=== PATIENT | female | born 1970 | race African-American/Black ===

== ENCOUNTER → 2018-06-07 | Emergency (ER) | payer OTHER ==
[~2018-06-07] MED LIST: IBUPROFEN 400 MG TABLET (FP) PO ONE
[2018-06-07 18:13] VITALS: BP 147/89; PULSE 72; TEMP 98; BMI 39.6
--- NOTE | 2018-06-07 19:01 | PDOC ---
History of Present Illness - General Chief Complaint: Headache Stated Complaint: FALL INJURY Time Seen by Provider: 06/07/18 18:22 History Source: Patient Exam Limitations: Clinical Condition - History of Present Illness Initial Comments: 06/07/18 18:52 Patient with no significant past medical history presenting with complain of headache with mild swelling to right side of top of head after hitting the head on a cabinet at work 30 minutes ago. Denies dizziness, blurry vision, vision changes, N/V, LOC. Denies open wound or bruising to site. Denies any other symptoms Timing/Duration: 1/2 hour Severity: mild Past History - Past Medical History Allergies/Adverse Reactions: Allergies Allergy/AdvReac Type Severity Reaction Status Date / Time No Known Allergies Allergy Verified 06/07/18 18:13 Home Medications: Ambulatory Orders Ibuprofen 800 mg PO TID PRN #20 tablet 06/07/18 - Suicide/Smoking/Psychosocial Hx Smoking History: Never smoked Have you smoked in the past 12 months: No Information on smoking cessation initiated: No Hx Alcohol Use: No Drug/Substance Use Hx: No Review of Systems - Review of Systems Able to Perform ROS?: Yes Is the patient limited Mongolian proficient: No Constitutional: No: Chills, Diaphoresis, Fever, Loss of Appetite, Malaise, Night Sweats, Weakness, Weight Stable, Unintentional Wgt. Loss, Unexplained wgt Loss, Other HEENTM: Yes: See HPI. No: Eye Pain, Blurred Vision, Tearing, Recent change in vision, Double Vision, Cataracts, Ear Pain, Ocular Prothesis, Ear Discharge, Nose Pain, Nose Congestion, Tinnitus, Nose Bleeding, Hearing Loss, Throat Pain, Throat Swelling, Mouth Pain, Dental Problems, Difficulty Swallowing, Mouth Swelling, Other Respiratory: No: Cough, Orthopnea, Shortness of Breath, SOB with Exertion, SOB at Rest, Stridor, Wheezing, Productive cough, Hemoptysis, Other Cardiac (ROS): No: Chest Pain, Edema, Irregular Heart Rate, Lightheadedness, Palpitations, Syncope, Chest Tightness, Other ABD/GI: No: Abdominal Distended, Abd. Pain w/ defecation, Blood Streaked Bowels , Constipated, Diarrhea, Difficulty Swallowing, Nausea, Poor Appetite, Poor Fluid Intake, Rectal Bleeding, Vomiting, Indigestion, Abdominal cramping, Tarry Stools, Other *Physical Exam - Vital Signs Last Vital Signs Temp Pulse Resp BP Pulse Ox 98.0 F 72 16 147/89 100 06/07/18 18:11 06/07/18 18:11 06/07/18 18:11 06/07/18 18:11 06/07/18 18:11 - Physical Exam Comments: 06/07/18 19:18 GENERAL: Well developed, well nourished. Awake and alert. No acute distress. HEENT: Normocephalic, atraumatic. PERRLA, EOMI. No conjunctival pallor. Sclera are non- icteric. Moist mucous membranes. Oropharynx is clear. NECK: Supple. Full ROM. No JVD. Carotid pulses 2+ and symmetric, without bruits. No thyromegaly. No lymphadenopathy. CARDIOVASCULAR: Regular rate and rhythm. No murmurs, rubs, or gallops. Distal pulses are 2+ and symmetric. PULMONARY: No evidence of respiratory distress. Lungs clear to auscultation bilaterally. No wheezing, rales or rhonchi. ABDOMINAL: Soft. Non-tender. Non-distended. No rebound or guarding. No organomegaly. Normoactive bowel sounds. MUSCULOSKELETAL : mild tenderness over area of contusion. EXTREMITIES: No cyanosis. No clubbing. No edema. No calf tenderness. SKIN: mild swelling to right scalp of top of head. no bruising to area. no evidence of bleeding on exam. NEUROLOGICAL: Alert, awake, appropriate. Cranial nerves 2-12 intact. No deficits to light touch and temperature in face, upper extremities and lower extremities. No motor deficits in the in face, upper extremities and lower extremities. Normoreflexic in the upper and lower extremities. Normal speech. Toes are down- going bilaterally. Gait is normal without ataxia. PSYCHIATRIC: Cooperative. Good eye contact. Appropriate mood and affect. General Appearance: Yes: Nourished, Appropriately Dressed. No: Apparent Distress Medical Decision Making - Medical Decision Making 06/07/18 19:20 Patient presented with complain of headache due to head contusion from a cabinet. Normal neuro exam on clinical exam. No evidence of intracranial bleeding or bruising to the area. Mild swelling to area of contusion. Symptoms likely due to contusion. No other symptoms on clinical exam. Normal tandem walking. Normal nose to hand movement. Patient is stable for home discharge with ED precautions for new development of nausea or vomiting, worsening headache or change in vision *DC/Admit/Observation/Transfer Diagnosis at time of Disposition: Head contusion Qualifiers: Encounter type: initial encounter Contusion of head detail: scalp Qualified Code(s): S00.03XA - Contusion of scalp, initial encounter - Discharge Dispostion Disposition: HOME Decision to Admit order: No - Prescriptions Prescriptions: Ibuprofen 800 mg PO TID PRN #20 tablet PRN Reason: headache - Referrals - Patient Instructions Printed Discharge Instructions: DI for Contusion - Post Discharge Activity
== END | disposition home or self-care (01) ==
LOC: JERFT 17:51
DX: S00.83XA Contusion of other part of head, initial encounter (principal); W22.8XXA Striking against or struck by other objects, initial encounter; Y93.89 Activity, other specified; Y92.89 Other specified places as the place of occurrence of the external cause; Y99.8 Other external cause status
CPT/HCPCS: 99281-25